=== PATIENT | female | born 1990 | race Caucasian/White ===

== ENCOUNTER 2018-02-26 19:38 | Emergency (ER) | payer OTHER ==
[~2018-02-26] VITALS: Ht 167.6 cm; Wt 68.0 kg
[2018-02-26 19:58] LABS: URINE BILIRUBIN NEGATIVE (Negative); URINE BLOOD NEGATIVE (Negative); URINE CLARITY CLEAR; URINE COLOR YELLOW; URINE GLUCOSE-RANDOM* NEGATIVE (Negative); URINE KETONES NEGATIVE (Negative); URINE LEUKOCYTES-REFLEX NEGATIVE (Negative); URINE NITRITE-REFLEX NEGATIVE (Negative); URINE PROTEIN (DIPSTICK) NEGATIVE (Negative); URINE SPECIFIC GRAVITY 1.025 (1.005-1.035); URINE UROBILINOGEN 0.2 E.U./dl (0.2-1.0)
[2018-02-26 20:15] LABS: ABSOLUTE NEUTROPHILS 4.8 thou/uL (1.4-8.2); BASOPHILS 0.5 % (0.0-2.0); EOSINOPHILS 1.1 % (0.0-3.0); HEMATOCRIT 37.5 % (37.0-47.0); HEMOGLOBIN 13.3 gm/dL (12.0-15.0); LYMPHOCYTES 32.6 % (24.0-44.0); MCH 34.1 pg (26.0-34.0); MCHC 35.3 g/dL (28.0-37.0); MCV 96.5 fL (80.0-100.0); MONOCYTES 5.6 % (1.0-8.0); PLATELET COUNT 236 thou/uL (150-400); POLYS 60.2 % (36.0-66.0); RBC 3.89 mil/uL (4.20-5.00); RDW 12.8 % (10.5-14.5); WBC 7.9 thou/uL (4.0-11.0)
[2018-02-26 20:18] LABS: CALCIUM 9.1 mg/dL (8.5-10.1); CREATININE 1.1 mg/dL (0.6-1.0); POTASSIUM 3.7 mmol/L (3.5-5.1)
[2018-02-26 20:24] LABS: ALBUMIN 4.5 g/dL (3.4-5.0); DIRECT BILIRUBIN 0.2 mg/dL (<0.1-0.3); TOTAL BILIRUBIN 0.7 mg/dL (<0.1-1.0); TOTAL PROTEIN 7.5 g/dL (6.4-8.2)
[2018-02-26] MEDS ORDERED: SENNA-DOCUSATE1 EACH PO (23:40)
[2018-02-26] MEDS ORDERED: PROTONIX40 MG PO (23:40)
[2018-02-26] MEDS ORDERED: ZOFRAN4 MG PO (23:40)
[2018-02-26] MEDS ORDERED: NORCO 5-325 TA1 EACH PO (23:40)
[2018-02-26] MEDS ORDERED: CARAFATE 1 GM TA1 G1 PO (23:40)
[2018-02-26 23:54] VITALS: BP 108/62
== END 2018-02-26 23:56 | disposition home or self-care (01) ==
LOC: ER 19:38
PROVIDERS: Emergency Medicine; Physician Assistant
DX: R10.13 Epigastric pain (principal); R11.0 Nausea; R42 Dizziness and giddiness; M54.9 Dorsalgia, unspecified

== ENCOUNTER → 2019-03-24 | Outpatient (CLI) | payer OTHER ==
[~2019-03-24] VITALS: Ht 165.1 cm; Wt 65.8 kg
[~2019-03-24] MED LIST: CARAFATE 1 GM TA1 G1 PO; NORCO 5-325 TA1 EACH PO; PROBIOTIC1 EAC1 PO; PROTONIX40 MG PO; SENNA-DOCUSATE1 EACH PO; VALACYCLOVIR1000 MG PO; VITAMIN B-121000 MC3 PO; ZOFRAN4 MG PO
--- NOTE | 2019-03-25 16:06 | PATH ---
[facility] [address] [address] PATHOLOGY RPT PROCEDURE Name: TELLO PEREZ Room #: REG BENJA Eagle.#: [id number] ������������������ Admission: 03/24/19 ������������������ Date of : 89 Discharge: Report #: [id number] Path Case #: [id number] [facility] Accession Number: [id number] . 01 Material submitted: . PART A: duodenum - BX OF DUODENUM R/O SPRUE PART B: stomach - BX OF GASTRIC R/O H. PYLORI . 01 Clinical history: . Pre-OP DX: Hx upper abdominal pain Post-OP DX: Esophagitis . 02 Diagnosis: A. Small bowel mucosa, duodenum R/O sprue, endoscopic biopsy: - No diagnostic abnormalities present. - Negative for villous blunting or increase in intraepithelial lymphocytes. . B. Gastric mucosa, gastric R/O H. pylori, endoscopic biopsy: - Mild chronic gastritis with features of reactive gastropathy. - Negative for intestinal metaplasia or atrophy. - Negative for Helicobacter pylori (properly controlled immunohistochemical stain performed). (IUV:marjorie; 03/25/2019) QMS/03/25/2019 . 02 Electronically signed: . Ursula Timmons MD, Pathologist NPI- [id number] . 01 Gross description: . A. Received in formalin labeled "Tello Perez, BX of duodenum, rule out sprue," are 6 segments of espinoza soft tissue measuring 1.3 x 1.0 x 0.2 cm in aggregate dimensions and ranging from 0.1 to 0.3 cm in maximum dimension. The specimen is submitted entirely in cassette A1. . B. Received in formalin labeled "Tello Perez, BX of gastric, rule out H. pylori," are 4 segments of espinoza soft tissue measuring 1.5 x 0.9 x 0.2 cm in aggregate dimensions and ranging from 0.3 to 0.7 cm in maximum dimension. The specimen is submitted entirely in cassette B1. (TSD; 03/24/2019) TOB/TOB . 02 Pathologist provided ICD-10: K29.50, K31.9 . 02 [place] [address] PATHOLOGY RPT PROCEDURE Name: TELLO PEREZ Room #: REG CL Savage#: [id number] ������������������ Admission: 03/24/19 ������������������ Date of : 89 Discharge: Report #: [id number] Path Case #: [id number] Specimen Comment: A courtesy copy of this report has been sent to Specimen Comment: [phone], . Specimen Comment: Report sent to / DR DARBY Performed at: [address], [place] [id number] MD Jamal Mcgill MD Phone: [phone] Performed at: [address] [id number] MD Ursula Timmons MD Phone: [phone]
--- NOTE | 2019-03-26 16:50 | P ---
[facility] [place] [address] PROCEDURE REPORT Name: TELLO WELLS Room #: REG BENJA Wan#: [id number] Admission: 03/24/19 ������������������ Attend Phys: Douglas Devine Discharge: ������������������ Date of : 89 Report #: [id number] THIS REPORT FOR: //name// CC: Tello Webster DATE OF SERVICE: 03/24/2019 PROCEDURE PERFORMED: Upper endoscopy with biopsies. HISTORY OF PRESENT ILLNESS: The patient is a 28-year-old female with a history of abdominal bloating and midepigastric abdominal pain. No previous history of upper endoscopy. Plan is for EGD today. DESCRIPTION OF PROCEDURE: The risks and benefits of the procedure were explained to the patient, those risks including but not limited to bleeding, perforation, the risk of sedation. She understood these risks and gave informed consent. Sedation was given using propofol per anesthesia. Next, using a standard Olympus upper endoscope, the scope was placed in the patient's mouth and advanced under direct vision through the esophagus, stomach and into the second portion of the duodenum. The upper and mid esophagus was normal in appearance. In the distal esophagus at the GE junction, a small area of grade A erosive esophagitis was noted. Overall, the gastric mucosa was normal. The pylorus was normal and patent. The duodenal bulb, first and second portion were all normal. The biopsies of the second portion of the duodenum were obtained today to rule out the possibility of celiac sprue. The scope was brought back up into the patient's stomach and gastric biopsies were obtained also to rule out H. pylori. The scope was then withdrawn and the procedure terminated. The patient tolerated the procedure well. IMPRESSION: 1. Grade A erosive esophagitis. 2. Otherwise, normal upper endoscopy. RECOMMENDATIONS: 1. Await biopsy results. 2. Would recommend a trial of daily PPI therapy. Thank you for allowing me to participate in her care. ��������������������������������������������� <ELECTRONICALLY SIGNED> ���������������������������������������� By: Douglas Webster MD ��������������������������������������������� 03/26/19 [id number] Douglas Webster MD /nt
== END | disposition home or self-care (01) ==
LOC: GI 09:32
DX: K29.50 Unspecified chronic gastritis without bleeding (principal); K31.9 Disease of stomach and duodenum, unspecified; K22.10 Ulcer of esophagus without bleeding; Z87.891 Personal history of nicotine dependence; Z98.890 Other specified postprocedural states; Z79.891 Long term (current) use of opiate analgesic
CPT/HCPCS: 62110; 62900